=== PATIENT | female | born 1980 | race Caucasian/White ===

== ENCOUNTER 2020-03-31 03:34 | Emergency (ER) | payer SELFPAY ==
[~2020-03-31] VITALS: Ht 162.6 cm; Wt 80.0 kg
[2020-03-31 03:38] VITALS: BP 132/80
[2020-03-31] MEDS ORDERED: TETANUS, DIPHTHERIA, PERTUSSIS VAC/PF 0.5ML (>7YR OLD) IM ONE (07:30)
[2020-03-31] MEDS ORDERED: ACETAMINOPHEN 325MG TABLET PO ONE (10:00)
== END 2020-03-31 12:01 | disposition home or self-care (01) ==
LOC: ER 03:34
DX: S72.8X1A Other fracture of right femur, initial encounter for closed fracture (principal); R51 Headache; M25.512 Pain in left shoulder; M54.2 Cervicalgia; V49.59XA Passenger injured in collision with other motor vehicles in traffic accident, initial encounter; Y93.89 Activity, other specified; Y92.488 Other paved roadways as the place of occurrence of the external cause; Z23 Encounter for immunization
CPT/HCPCS: 71046; 73030; 73552; 90471; 90715; 99284

== ENCOUNTER 2020-04-09 12:51 | Emergency (ER) | payer BC, OTHER ==
[~2020-04-09] VITALS: Ht 157.5 cm; Wt 81.0 kg
[2020-04-09 13:06] VITALS: BP 142/78
== END 2020-04-09 13:40 | disposition home or self-care (01) ==
LOC: ER 13:06
DX: Z48.02 Encounter for removal of sutures (principal)
CPT/HCPCS: 99281

== ENCOUNTER 2020-05-21 00:18 | Emergency (ER) | payer BC ==
[~2020-05-21] VITALS: Ht 157.5 cm; Wt 60.0 kg
[2020-05-21 00:43] VITALS: BP 120/70
== END 2020-05-21 00:44 | disposition home or self-care (01) ==
LOC: ER 00:18
DX: Z48.02 Encounter for removal of sutures (principal); R03.0 Elevated blood-pressure reading, without diagnosis of hypertension
CPT/HCPCS: 99281

== ENCOUNTER 2022-08-05 07:43 | Inpatient (IN) | payer BC, MEDICAID ==
[~2022-08-05] VITALS: Ht 157.5 cm; Wt 83.5 kg
[2022-08-05] MEDS ORDERED: ONDANSETRON HCL 4MG/2ML INJ IV STA (08:10)
[2022-08-05] MEDS ORDERED: MORPHINE SULFATE 4 MG/ML CPJ (NOT FOR IM USE) IV STA (08:10)
[2022-08-05] MEDS ORDERED: SODIUM CHLORIDE 0.9% 1,000 ML IV ONE (08:15)
[2022-08-05] MEDS ORDERED: ACETAMINOPHEN 325MG TABLET PO ONE (08:45)
[2022-08-05 08:55] LABS: HEMATOCRIT. 37.1 % (36.0-48.0); HEMOGLOBIN. 12.4 g/dL (12.0-16.0); MEAN CORPUSCULAR HEMOGLOBIN 29.2 pg (28.0-32.0); MEAN CORPUSCULAR VOLUME 87.5 fL (81.0-99.0); MEAN PLATELET VOLUME 8.2 fl (7.4-10.4); PLATELET 260 x1000/uL (130-400); RED BLOOD CELL COUNT 4.23 mill/uL (4.2-5.4); RED CELL DISTRIBUTION WIDTH 13.3 % (11.6-14.6)
[2022-08-05 09:05] LABS: INR 1.1; PARTIAL THROMBOPLASTIN TIME 33.1 sec (23.4-31.0); PROTHROMBIN TIME 11.4 sec (9.6-11.0)
[2022-08-05 09:15] LABS: CHLORIDE 99 mEq/L (98-107)
[2022-08-05 09:27] LABS: HCG SCREEN NEGATIVE
[2022-08-05] MEDS ORDERED: KCL 10MEQ/50ML PREMIX 50 ML IV ONE (10:00)
[2022-08-05 10:02] LABS: CLARITY URINE TURBID (CLEAR); COLOR URINE DARK YELLOW (YELLOW); KETONES URINE 3+ (NEGATIVE); LEUKOCYTE ESTERASE URINE 2+ (NEGATIVE); NITRITE URINE NEGATIVE (NEGATIVE); OCCULT BLOOD URINE 3+ (NEGATIVE); PH URINE 5.5 (4.5-8.0); PROTEIN URINE 2+ (NEGATIVE); SPECIFIC GRAVITY URINE 1.021 (1.005-1.030)
[2022-08-05] MEDS ORDERED: PIPERACILLIN/TAZ 3.375G PREMIX 50 ML IV ONE (11:00)
[2022-08-05] MEDS ORDERED: VANCOMYCIN 1G PREMIX 200 ML IV ONE (11:00)
[2022-08-05 11:17] LABS: PLATELET ESTIMATE NORMAL
[2022-08-05] MEDS ORDERED: IOHEXOL-300 100 ML BOTTLE ONE (13:57)
[2022-08-05] MEDS ORDERED: DOXYCYCLINE 100 MG in DEXT 5% WATER 100 ML IV STA (14:16)
[2022-08-05] MEDS ORDERED: METRONIDAZOLE 500 MG PREMIX 100 ML IV ONE (14:30)
[2022-08-05] MEDS ORDERED: MAGNESIUM/ALUMINUM HYDROXIDE/SIMETHICONE 30ML UDC PO PRN (16:45)
[2022-08-05] MEDS ORDERED: DIPHENHYDRAMINE 50MG/ML VIAL IV PRN (16:45)
[2022-08-05] MEDS ORDERED: ACETAMINOPHEN 325MG TABLET PO PRN (16:45)
[2022-08-05] MEDS ORDERED: DOCUSATE SODIUM 100MG CAPSULE PO PRN (16:45)
[2022-08-05] MEDS ORDERED: ZOLPIDEM TARTRATE 5MG TABLET PO PRN (16:45)
[2022-08-05] MEDS ORDERED: GUAIFENESIN 200MG/10ML SUGAR FREE UDC PO PRN (16:45)
[2022-08-05] MEDS ORDERED: LORAZEPAM 0.5MG TABLET PO PRN (16:45)
[2022-08-05] MEDS ORDERED: CLONIDINE 0.1MG TABLET PO PRN (16:45)
[2022-08-05] MEDS ORDERED: CEFTRIAXONE SODIUM 1 G/VIAL IM SCH (16:45)
[2022-08-05] MEDS: HYDROCODONE/ACETAMINOPHEN 5/325MG TABLET PO PRN (17:57)
[2022-08-05] MEDS: METRONIDAZOLE 500 MG PREMIX 100 ML IV SCH (18:37)
[2022-08-05] MEDS: DEXT 5%/0.9% NACL 1,000 ML IV SCH (18:39)
[2022-08-05] MEDS: PANTOPRAZOLE SODIUM 40 MG/VIAL IV SCH (18:56)
[2022-08-05 19:00] VITALS: BP 114/56
[2022-08-05 20:00] VITALS: BP 114/56
[2022-08-05] MEDS: CEFTRIAXONE 1,000 MG in DEXTROSE 5% WATER 50 ML IV SCH (20:42)
[2022-08-05] MEDS: SODIUM CHLORIDE 0.9% INJ 3ML FLUSH IVF SCH (20:47)
[2022-08-06] VITALS: BP 133/74
[2022-08-06] MEDS: ACETAMINOPHEN 325MG TABLET PO PRN (00:14)
[2022-08-06] MEDS: HYDROCODONE/ACETAMINOPHEN 5/325MG TABLET PO PRN ×3 (00:14→22:44)
[2022-08-06 04:00] VITALS: BP 97/55
[2022-08-06] MEDS: SODIUM CHLORIDE 0.9% INJ 3ML FLUSH IVF SCH ×2 (05:19→19:21)
[2022-08-06] MEDS: METRONIDAZOLE 500 MG PREMIX 100 ML IV SCH ×2 (05:19→19:00)
[2022-08-06] MEDS: DEXT 5%/0.9% NACL 1,000 ML IV SCH ×2 (05:19→19:21)
[2022-08-06 06:33] LABS: HEMATOCRIT. 32.8 % (36.0-48.0); HEMOGLOBIN. 10.8 g/dL (12.0-16.0); MEAN CORPUSCULAR HEMOGLOBIN 29.1 pg (28.0-32.0); MEAN CORPUSCULAR VOLUME 88.1 fL (81.0-99.0); MEAN PLATELET VOLUME 8.2 fl (7.4-10.4); PLATELET 239 x1000/uL (130-400); RED BLOOD CELL COUNT 3.72 mill/uL (4.2-5.4); RED CELL DISTRIBUTION WIDTH 13.1 % (11.6-14.6)
[2022-08-06 08:00] VITALS: BP 105/57
[2022-08-06] MEDS ORDERED: DOXYCYCLINE 100 MG in DEXT 5% WATER 100 ML IV SCH (09:00)
[2022-08-06] MEDS: PANTOPRAZOLE SODIUM 40 MG/VIAL IV SCH (09:57)
[2022-08-06 11:41] LABS: PLATELET ESTIMATE NORMAL
[2022-08-06 12:00] VITALS: BP 129/69
[2022-08-06] MEDS ORDERED: NALOXONE HCL 0.4MG/ML VIAL IV PRN (13:15)
[2022-08-06] MEDS: MORPHINE SULFATE 2 MG/ML CPJ (NOT FOR IM USE) IV PRN ×2 (13:17→19:20)
[2022-08-06 16:00] VITALS: BP 122/96
[2022-08-06 20:00] VITALS: BP 116/70
[2022-08-06 20:26] LABS: OPIATES URINE SCREEN PRESUMTIVE POSITIVE (NEGATIVE)
[2022-08-06 20:27] LABS: *AMPHETAMINES SCREEN URINE NEGATIVE (NEGATIVE); *BARBITURATES SCREEN URINE NEGATIVE (NEGATIVE); *BENZODIAZEPINES SCREEN URINE NEGATIVE (NEGATIVE); *COCAINE SCREEN URINE NEGATIVE (NEGATIVE); CANNABINOID URINE SCREEN PRESUMTIVE POSITIVE (NEGATIVE); METHADONE URINE SCREEN NEGATIVE (NEGATIVE); PHENCYCLIDINE URINE SCREEN NEGATIVE (NEGATIVE)
[2022-08-06] MEDS: CEFTRIAXONE 1,000 MG in DEXTROSE 5% WATER 50 ML IV SCH (21:48)
[2022-08-07] VITALS (15 sets, daily range): BP systolic 106–128; BP diastolic 60–78
[2022-08-07] MEDS: DOXYCYCLINE 100 MG in DEXT 5% WATER 100 ML IV SCH ×3 (00:03→23:19)
[2022-08-07] MEDS: SODIUM CHLORIDE 0.9% INJ 3ML FLUSH IVF SCH ×4 (00:03→22:16)
[2022-08-07 00:29] LABS: T4 FREE 1.28 ng/dL (0.76-1.46)
[2022-08-07] MEDS: METRONIDAZOLE 500 MG PREMIX 100 ML IV SCH ×2 (06:00→17:34)
[2022-08-07 06:37] LABS: BASOPHILS % 0.1 % (0.0-2.0); EOSINOPHILS % 0.2 % (0.0-5.0); HEMATOCRIT. 34.2 % (36.0-48.0); HEMOGLOBIN. 11.4 g/dL (12.0-16.0); LYMPHOCYTES % 7.7 % (20.0-50.0); MEAN CORPUSCULAR HEMOGLOBIN 29.2 pg (28.0-32.0); MEAN CORPUSCULAR VOLUME 87.9 fL (81.0-99.0); MEAN PLATELET VOLUME 8.7 fl (7.4-10.4); MONOCYTES % 12.2 % (2.0-8.0); NEUTROPHILS % 79.8 % (40.0-76.0); PLATELET 259 x1000/uL (130-400); RED BLOOD CELL COUNT 3.89 mill/uL (4.2-5.4); RED CELL DISTRIBUTION WIDTH 13.3 % (11.6-14.6)
[2022-08-07] MEDS: DEXT 5%/0.9% NACL 1,000 ML IV SCH ×2 (08:45→22:16)
[2022-08-07] MEDS: PANTOPRAZOLE SODIUM 40 MG/VIAL IV SCH (09:24)
[2022-08-07] MEDS: MORPHINE SULFATE 2 MG/ML CPJ (NOT FOR IM USE) IV PRN ×3 (09:26→17:34)
[2022-08-07] MEDS ORDERED: DIATR MEGLU/DIATRIZOATE SOLN 30ML PO NR ×2 (10:00→12:00)
[2022-08-07] MEDS ORDERED: LIDOCAINE HCL 1% 10 MG/ML 10ML VIAL ONE ×2 (13:28)
[2022-08-07] MEDS ORDERED: FENTANYL CITRATE/PF 50MCG/ML 2ML VIAL ONE (13:28)
[2022-08-07] MEDS ORDERED: SODIUM BICARBONATE 4% (2.4MEQ) 5ML VIAL IV ONE (13:29)
[2022-08-07] MEDS ORDERED: FENTANYL CITRATE/PF 50MCG/ML 2ML VIAL IV ONE (13:50)
[2022-08-07 16:03] LABS: CHLORIDE 103 mEq/L (98-107)
[2022-08-07 16:03] LABS: CHLORIDE 101 mEq/L (98-107)
[2022-08-07] MEDS ORDERED: POTASSIUM CHLORIDE 20MEQ TABLET SR PO NR (17:00)
[2022-08-07] MEDS: CEFTRIAXONE 1,000 MG in DEXTROSE 5% WATER 50 ML IV SCH (19:39)
[2022-08-07] MEDS: HYDROCODONE/ACETAMINOPHEN 5/325MG TABLET PO PRN (19:57)
[2022-08-08] VITALS (7 sets, daily range): BP systolic 107–130; BP diastolic 44–82
[2022-08-08] MEDS: HYDROCODONE/ACETAMINOPHEN 5/325MG TABLET PO PRN ×3 (02:33→19:24)
[2022-08-08 04:07] LABS: NEISSERIA GONORRHOEAE NAA Negative (Negative)
[2022-08-08] MEDS: SODIUM CHLORIDE 0.9% INJ 3ML FLUSH IVF SCH ×3 (05:41→21:18)
[2022-08-08] MEDS: METRONIDAZOLE 500 MG PREMIX 100 ML IV SCH ×2 (05:42→17:50)
[2022-08-08 06:26] LABS: HEMATOCRIT. 32.3 % (36.0-48.0); HEMOGLOBIN. 10.7 g/dL (12.0-16.0); MEAN CORPUSCULAR HEMOGLOBIN 29.2 pg (28.0-32.0); MEAN CORPUSCULAR VOLUME 87.7 fL (81.0-99.0); MEAN PLATELET VOLUME 8.3 fl (7.4-10.4); PLATELET 281 x1000/uL (130-400); RED BLOOD CELL COUNT 3.68 mill/uL (4.2-5.4); RED CELL DISTRIBUTION WIDTH 13.4 % (11.6-14.6)
[2022-08-08 08:51] LABS: CHLORIDE 103 mEq/L (98-107)
[2022-08-08] MEDS: FAMOTIDINE 20MG/2ML VIAL IV SCH ×2 (08:58→21:09)
[2022-08-08] MEDS: DOXYCYCLINE 100 MG in DEXT 5% WATER 100 ML IV SCH ×2 (11:40→22:07)
[2022-08-08] MEDS: DEXT 5%/0.9% NACL 1,000 ML IV SCH ×2 (11:44→23:57)
[2022-08-08] MEDS: MORPHINE SULFATE 2 MG/ML CPJ (NOT FOR IM USE) IV PRN ×2 (11:53→17:52)
[2022-08-08] MEDS ORDERED: POTASSIUM CHLORIDE 20MEQ TABLET SR PO NR (12:00)
[2022-08-08 12:22] LABS: PLATELET ESTIMATE NORMAL
[2022-08-08] MEDS: ACETAMINOPHEN 325MG TABLET PO PRN (16:18)
[2022-08-08] MEDS ORDERED: POTASSIUM CHLORIDE 20MEQ TABLET SR PO SCH (17:15)
[2022-08-08] MEDS: CEFTRIAXONE 1,000 MG in DEXTROSE 5% WATER 50 ML IV SCH (20:55)
[2022-08-08] MEDS: ENOXAPARIN 30MG/0.3ML SYR SUBCUT SCH (21:09)
[2022-08-08] MEDS: ONDANSETRON HCL 4MG/2ML INJ IV PRN (22:07)
[2022-08-09] VITALS (7 sets, daily range): BP systolic 111–135; BP diastolic 61–80
[2022-08-09] MEDS: MORPHINE SULFATE 2 MG/ML CPJ (NOT FOR IM USE) IV PRN ×2 (00:34→08:22)
[2022-08-09] MEDS: SODIUM CHLORIDE 0.9% INJ 3ML FLUSH IVF SCH ×2 (05:12→20:27)
[2022-08-09] MEDS: METRONIDAZOLE 500 MG PREMIX 100 ML IV SCH ×2 (05:13→17:41)
[2022-08-09 06:42] LABS: HEMATOCRIT. 32.3 % (36.0-48.0); HEMOGLOBIN. 10.8 g/dL (12.0-16.0); MEAN CORPUSCULAR HEMOGLOBIN 29.4 pg (28.0-32.0); MEAN CORPUSCULAR VOLUME 87.8 fL (81.0-99.0); MEAN PLATELET VOLUME 8.5 fl (7.4-10.4); PLATELET 289 x1000/uL (130-400); RED BLOOD CELL COUNT 3.68 mill/uL (4.2-5.4); RED CELL DISTRIBUTION WIDTH 13.7 % (11.6-14.6)
[2022-08-09 06:53] LABS: CHLORIDE 103 mEq/L (98-107)
[2022-08-09] MEDS: FAMOTIDINE 20MG/2ML VIAL IV SCH ×2 (08:45→20:39)
[2022-08-09 11:12] LABS: PLATELET ESTIMATE NORMAL
[2022-08-09] MEDS: ENOXAPARIN 30MG/0.3ML SYR SUBCUT SCH ×2 (11:30→20:40)
[2022-08-09] MEDS: DOXYCYCLINE 100 MG in DEXT 5% WATER 100 ML IV SCH ×2 (11:30→23:50)
[2022-08-09] MEDS: ONDANSETRON HCL 4MG/2ML INJ IV PRN ×2 (12:58→21:12)
[2022-08-09] MEDS: HYDROCODONE/ACETAMINOPHEN 5/325MG TABLET PO PRN ×2 (13:12→20:41)
[2022-08-09] MEDS ORDERED: CEFD300C3 MT (13:13)
[2022-08-09] MEDS ORDERED: DOXY100C5 PO (13:13)
[2022-08-09] MEDS ORDERED: IBUP-2437 MT (13:14)
[2022-08-09] MEDS ORDERED: POTASSIUM CHLORIDE 20MEQ TABLET SR PO NR (16:15)
[2022-08-09] MEDS: CEFTRIAXONE 1,000 MG in DEXTROSE 5% WATER 50 ML IV SCH (20:25)
[2022-08-09] MEDS: DEXT 5%/0.9% NACL 1,000 ML IV SCH (20:27)
[2022-08-10] MEDS: DEXT 5%/0.9% NACL 1,000 ML IV SCH (03:25)
[2022-08-10 04:03] VITALS: BP 127/69
[2022-08-10] MEDS: METRONIDAZOLE 500 MG PREMIX 100 ML IV SCH (05:35)
[2022-08-10] MEDS: SODIUM CHLORIDE 0.9% INJ 3ML FLUSH IVF SCH ×2 (05:35→14:32)
[2022-08-10 06:12] LABS: HEMATOCRIT. 33.9 % (36.0-48.0); HEMOGLOBIN. 11.3 g/dL (12.0-16.0); MEAN CORPUSCULAR VOLUME 87.3 fL (81.0-99.0); PLATELET 340 x1000/uL (130-400); RED BLOOD CELL COUNT 3.89 mill/uL (4.2-5.4); RED CELL DISTRIBUTION WIDTH 13.4 % (11.6-14.6)
[2022-08-10 07:08] LABS: CHLORIDE 103 mEq/L (98-107)
[2022-08-10 08:00] VITALS: BP 127/95
[2022-08-10 09:49] LABS: PLATELET ESTIMATE NORMAL
[2022-08-10] MEDS: FAMOTIDINE 20MG/2ML VIAL IV SCH (10:24)
[2022-08-10] MEDS: ENOXAPARIN 30MG/0.3ML SYR SUBCUT SCH (10:25)
[2022-08-10] MEDS: DOXYCYCLINE 100 MG in DEXT 5% WATER 100 ML IV SCH (10:54)
[2022-08-10] MEDS: HYDROCODONE/ACETAMINOPHEN 5/325MG TABLET PO PRN (11:03)
[2022-08-10 12:00] VITALS: BP 129/87
[2022-08-10] MEDS ORDERED: POTASSIUM CHLORIDE 20MEQ TABLET SR PO NR (12:15)
[2022-08-10 13:43] VITALS: BP 129/87
[2022-08-10] MEDS ORDERED: FAMOTIDINE 20MG TABLET PO SCH (21:00)
== END 2022-08-10 14:09 | disposition home or self-care (01) | DRG 720 ==
LOC: ER 07:43 → 3WST 14:38 → EDBEDREQTM 14:55 → EDBEDREQ 14:55
PROVIDERS: ADMIT Internal Medicine; ATTEND Internal Medicine
PROC: 0W9H30Z Drainage of Retroperitoneum with Drainage Device, Percutaneous Approach (ICD-10-PCS; principal; 2022-08-07)
DX: A41.9 Sepsis, unspecified organism (principal); K65.1 Peritoneal abscess; L02.211 Cutaneous abscess of abdominal wall; E27.8 Other specified disorders of adrenal gland; K57.20 Diverticulitis of large intestine with perforation and abscess without bleeding; E87.6 Hypokalemia; N39.0 Urinary tract infection, site not specified; M79.81 Nontraumatic hematoma of soft tissue; K59.00 Constipation, unspecified; Z20.822 Contact with and (suspected) exposure to COVID-19; K62.5 Hemorrhage of anus and rectum; N70.92 Oophoritis, unspecified; F12.90 Cannabis use, unspecified, uncomplicated; F17.210 Nicotine dependence, cigarettes, uncomplicated
CPT/HCPCS: 36415; 71045; 74176; 74177; 76830; 76856; 77012; 80048; 80053; 80061; 80305; 81003; 84439; 84443; 84703; 85025; 86850; 86900; 87077; 87186; 87210; 87426; 87491; 87591; 93005; 93970; 99285; C1729; C1760; C1769; C9113; C9803; J0696; J1650; J2270; J2405; J2543; J3010; J3370; J3480; J3490; J7030; J7060; L8514; Q9963; Q9967

== ENCOUNTER 2022-08-12 12:19 | Emergency (ER) | payer MEDICAID ==
[~2022-08-12] VITALS: Ht 157.5 cm; Wt 91.0 kg
[~2022-08-12 12:19] MED LIST: CEFD300C3 MT; DOXY100C5 PO; IBUP-2437 MT
[2022-08-12 18:16] LABS: BASOPHILS % 0.4 % (0.0-2.0); EOSINOPHILS % 0.4 % (0.0-5.0); HEMATOCRIT. 34.7 % (36.0-48.0); HEMOGLOBIN. 11.6 g/dL (12.0-16.0); LYMPHOCYTES % 15.6 % (20.0-50.0); MEAN CORPUSCULAR HEMOGLOBIN 29.5 pg (28.0-32.0); MEAN CORPUSCULAR VOLUME 88.1 fL (81.0-99.0); MEAN PLATELET VOLUME 8.2 fl (7.4-10.4); MONOCYTES % 5.5 % (2.0-8.0); NEUTROPHILS % 78.1 % (40.0-76.0); PLATELET 420 x1000/uL (130-400); RED BLOOD CELL COUNT 3.94 mill/uL (4.2-5.4); RED CELL DISTRIBUTION WIDTH 13.6 % (11.6-14.6)
[2022-08-12 18:30] LABS: HCG SCREEN NEGATIVE
[2022-08-12 18:33] LABS: CHLORIDE 101 mEq/L (98-107)
[2022-08-12 18:50] VITALS: BP 116/64
[2022-08-12] MEDS ORDERED: DOXY100C5 PO (20:33)
[2022-08-12] MEDS ORDERED: CEFD300C3 MT (20:33)
[2022-08-12] MEDS ORDERED: IBUP-2028 MT (20:33)
== END 2022-08-12 21:12 | disposition home or self-care (01) ==
LOC: ER 12:19
DX: N73.9 Female pelvic inflammatory disease, unspecified (principal); Z98.890 Other specified postprocedural states
CPT/HCPCS: 36415; 74177; 80053; 83690; 84703; 85025; 99285; Z7610

== ENCOUNTER 2022-08-15 11:42 | Inpatient (IN) | payer MEDICAID ==
[~2022-08-15] VITALS: Ht 165.1 cm; Wt 68.0 kg
[~2022-08-15 11:42] MED LIST changes: +IBUP-2028 MT
[2022-08-15] MEDS ORDERED: KETOROLAC 30MG/ML VIAL IV STA (14:28)
[2022-08-15] MEDS ORDERED: ONDANSETRON HCL 4MG/2ML INJ IV STA (14:28)
[2022-08-15] MEDS ORDERED: DOXYCYCLINE HYCLATE 100MG CAPSULE PO ONE (14:45)
[2022-08-15] MEDS ORDERED: METRONIDAZOLE 500 MG PREMIX 100 ML IV ONE (14:45)
[2022-08-15] MEDS ORDERED: CEFTRIAXONE 1 G PREMIX 50 ML IV ONE (14:45)
[2022-08-15 15:25] LABS: BASOPHILS % 0.1 % (0.0-2.0); EOSINOPHILS % 0.1 % (0.0-5.0); HEMATOCRIT. 34.2 % (36.0-48.0); HEMOGLOBIN. 11.3 g/dL (12.0-16.0); LYMPHOCYTES % 8.8 % (20.0-50.0); MEAN CORPUSCULAR HEMOGLOBIN 29.3 pg (28.0-32.0); MEAN CORPUSCULAR VOLUME 88.4 fL (81.0-99.0); MEAN PLATELET VOLUME 7.4 fl (7.4-10.4); MONOCYTES % 5.7 % (2.0-8.0); NEUTROPHILS % 85.3 % (40.0-76.0); PLATELET 525 x1000/uL (130-400); RED BLOOD CELL COUNT 3.87 mill/uL (4.2-5.4); RED CELL DISTRIBUTION WIDTH 13.7 % (11.6-14.6)
[2022-08-15 15:34] LABS: CHLORIDE 102 mEq/L (98-107)
[2022-08-15 19:00] LABS: CLARITY URINE CLOUDY (CLEAR); COLOR URINE DARK YELLOW (YELLOW); KETONES URINE 3+ (NEGATIVE); LEUKOCYTE ESTERASE URINE 1+ (NEGATIVE); NITRITE URINE NEGATIVE (NEGATIVE); OCCULT BLOOD URINE NEGATIVE (NEGATIVE); PH URINE 5.5 (4.5-8.0); PROTEIN URINE 1+ (NEGATIVE); SPECIFIC GRAVITY URINE 1.028 (1.005-1.030)
[2022-08-15] MEDS ORDERED: NALOXONE HCL 0.4MG/ML VIAL IV PRN (22:00)
[2022-08-15] MEDS: HYDROCODONE/ACETAMINOPHEN 10/325MG TABLET PO PRN (22:10)
[2022-08-15] MEDS: ACETAMINOPHEN 325MG TABLET PO PRN (22:11)
[2022-08-16] MEDS: HYDROCODONE/ACETAMINOPHEN 10/325MG TABLET PO PRN ×3 (06:41→19:24)
[2022-08-16 09:00] VITALS: BP 138/79
[2022-08-16 10:10] VITALS: BP 111/67
[2022-08-16] MEDS ORDERED: ONDANSETRON HCL 4MG/2ML INJ IV PRN (10:45)
[2022-08-16 12:00] VITALS: BP 129/82
[2022-08-16] MEDS: PIPERACILLIN/TAZOBACTAM 3.375 G in DEXTROSE 5% WATER 50 ML IV SCH ×2 (12:00→20:43)
[2022-08-16 16:00] VITALS: BP 115/74
[2022-08-16 20:00] VITALS: BP 130/90
[2022-08-16 23:52] VITALS: BP 130/90
[2022-08-17 02:00] VITALS: BP 130/90
[2022-08-17 03:56] VITALS: BP 130/90
[2022-08-17] MEDS: PIPERACILLIN/TAZOBACTAM 3.375 G in DEXTROSE 5% WATER 50 ML IV SCH ×3 (04:01→20:35)
[2022-08-17 07:53] LABS: BASOPHILS % 0.4 % (0.0-2.0); EOSINOPHILS % 0.2 % (0.0-5.0); HEMATOCRIT. 31.8 % (36.0-48.0); HEMOGLOBIN. 10.7 g/dL (12.0-16.0); LYMPHOCYTES % 10.7 % (20.0-50.0); MEAN CORPUSCULAR HEMOGLOBIN 29.4 pg (28.0-32.0); MEAN CORPUSCULAR VOLUME 87.1 fL (81.0-99.0); MEAN PLATELET VOLUME 7.4 fl (7.4-10.4); MONOCYTES % 8.4 % (2.0-8.0); NEUTROPHILS % 80.3 % (40.0-76.0); PLATELET 578 x1000/uL (130-400); RED BLOOD CELL COUNT 3.65 mill/uL (4.2-5.4); RED CELL DISTRIBUTION WIDTH 13.4 % (11.6-14.6)
[2022-08-17 07:57] LABS: CHLORIDE 98 mEq/L (98-107)
[2022-08-17 08:00] VITALS: BP 112/68
[2022-08-17] MEDS: HYDROCODONE/ACETAMINOPHEN 10/325MG TABLET PO PRN ×2 (08:08→19:00)
[2022-08-17 12:00] VITALS: BP 106/57
[2022-08-17] MEDS ORDERED: POTASSIUM CHLORIDE 20MEQ TABLET SR PO NR (13:30)
[2022-08-17 14:54] LABS: UCG SCREEN NEGATIVE
[2022-08-17 16:00] VITALS: BP 116/62
[2022-08-17 20:00] VITALS: BP 112/74
[2022-08-18] VITALS: BP 111/64
[2022-08-18 04:00] VITALS: BP 122/62
[2022-08-18] MEDS: PIPERACILLIN/TAZOBACTAM 3.375 G in DEXTROSE 5% WATER 50 ML IV SCH ×3 (04:25→20:38)
[2022-08-18 06:58] LABS: BASOPHILS % 0.2 % (0.0-2.0); EOSINOPHILS % 0.1 % (0.0-5.0); HEMATOCRIT. 30.8 % (36.0-48.0); HEMOGLOBIN. 10.6 g/dL (12.0-16.0); LYMPHOCYTES % 10.9 % (20.0-50.0); MEAN CORPUSCULAR HEMOGLOBIN 29.6 pg (28.0-32.0); MEAN CORPUSCULAR VOLUME 86.2 fL (81.0-99.0); MEAN PLATELET VOLUME 7.5 fl (7.4-10.4); MONOCYTES % 9.9 % (2.0-8.0); NEUTROPHILS % 78.9 % (40.0-76.0); PLATELET 557 x1000/uL (130-400); RED BLOOD CELL COUNT 3.58 mill/uL (4.2-5.4); RED CELL DISTRIBUTION WIDTH 13.2 % (11.6-14.6)
[2022-08-18 07:53] LABS: CHLORIDE 99 mEq/L (98-107)
[2022-08-18 08:00] VITALS: BP 118/70
[2022-08-18] MEDS: HYDROCODONE/ACETAMINOPHEN 10/325MG TABLET PO PRN ×3 (09:20→23:29)
[2022-08-18 12:00] VITALS: BP 120/79
[2022-08-18 16:00] VITALS: BP 119/72
[2022-08-18 17:06] LABS: INR 1.1; PROTHROMBIN TIME 11.7 sec (9.6-11.0)
[2022-08-18 20:00] VITALS: BP 116/54
[2022-08-18] MEDS: ACETAMINOPHEN 325MG TABLET PO PRN (20:32)
[2022-08-19] VITALS (18 sets, daily range): BP systolic 106–134; BP diastolic 60–96
[2022-08-19] MEDS: PIPERACILLIN/TAZOBACTAM 3.375 G in DEXTROSE 5% WATER 50 ML IV SCH ×3 (06:44→21:18)
[2022-08-19] MEDS ORDERED: SODIUM BICARBONATE 4% (2.4MEQ) 5ML VIAL IV ONE (07:41)
[2022-08-19] MEDS ORDERED: LIDOCAINE HCL/PF 1% 10 MG/ML 5ML VIAL ONE (07:41)
[2022-08-19] MEDS ORDERED: FENTANYL CITRATE/PF 50MCG/ML 2ML VIAL ONE (09:34)
[2022-08-19] MEDS ORDERED: FENTANYL CITRATE/PF 50MCG/ML 2ML VIAL IV ONE (11:00)
[2022-08-19] MEDS: ACETAMINOPHEN 325MG TABLET PO PRN (14:37)
[2022-08-19] MEDS: HYDROCODONE/ACETAMINOPHEN 10/325MG TABLET PO PRN ×2 (17:59→23:58)
[2022-08-19 21:09] LABS: BASOPHILS % 0.3 % (0.0-2.0); EOSINOPHILS % 0.5 % (0.0-5.0); HEMATOCRIT. 33.6 % (36.0-48.0); HEMOGLOBIN. 11.3 g/dL (12.0-16.0); MEAN CORPUSCULAR HEMOGLOBIN 29.5 pg (28.0-32.0); MEAN CORPUSCULAR VOLUME 87.5 fL (81.0-99.0); MEAN PLATELET VOLUME 7.8 fl (7.4-10.4); NEUTROPHILS % 58.2 % (40.0-76.0); PLATELET 605 x1000/uL (130-400); RED BLOOD CELL COUNT 3.84 mill/uL (4.2-5.4); RED CELL DISTRIBUTION WIDTH 13.4 % (11.6-14.6)
[2022-08-19 21:18] LABS: CHLORIDE 100 mEq/L (98-107)
[2022-08-20] VITALS: BP 131/65
[2022-08-20 04:00] VITALS: BP 240/71
[2022-08-20] MEDS: PIPERACILLIN/TAZOBACTAM 3.375 G in DEXTROSE 5% WATER 50 ML IV SCH (06:55)
[2022-08-20] MEDS: HYDROCODONE/ACETAMINOPHEN 10/325MG TABLET PO PRN (06:56)
[2022-08-20 08:00] VITALS: BP 116/63
[2022-08-20 10:17] VITALS: BP 116/63
== END 2022-08-20 12:51 | disposition home or self-care (01) | DRG 813 ==
LOC: ER 12:15 → MICUSO 15:42 → EDBEDREQ 15:51 → EDBEDREQTM 15:51 → EDBEDREQSVC 15:51 → 6EST 08-16 09:12
PROVIDERS: ADMIT Internal Medicine; ATTEND Internal Medicine
PROC: 0W9J30Z Drainage of Pelvic Cavity with Drainage Device, Percutaneous Approach (ICD-10-PCS; principal; 2022-08-19)
DX: T85.628A Displacement of other specified internal prosthetic devices, implants and grafts, initial encounter (principal); A41.9 Sepsis, unspecified organism; E44.1 Mild protein-calorie malnutrition; T79.7XXA Traumatic subcutaneous emphysema, initial encounter; N73.9 Female pelvic inflammatory disease, unspecified; F12.90 Cannabis use, unspecified, uncomplicated; Z20.822 Contact with and (suspected) exposure to COVID-19; Z68.25 Body mass index [BMI] 25.0-25.9, adult
CPT/HCPCS: 36415; 74176; 77012; 80048; 80053; 81003; 81025; 85025; 87075; 87186; 87426; 99152; 99153; 99285; C1729; C1769; J0696; J1885; J2405; J2543; J3010; J3490; J7060; L8514; G0500